=== PATIENT | male | born 1940 | race Caucasian/White ===

== ENCOUNTER → 2024-02-05 | Day surgery (SDC) | payer MEDICARE, BC ==
[2024-02-04 12:02] LABS: BASOPHILS % (AUTO) 0.2 % (0-1); EOSINOPHILS # (AUTO) 0.1 X10'3 (0-0.9); EOSINOPHILS % (AUTO) 1.4 % (0-6); HEMATOCRIT 37.4 % (42.0-52.0); HEMOGLOBIN 12.6 g/dl (14.0-17.9); LYMPHOCYTES # (AUTO) 1.2 X10'3 (1.1-4.8); LYMPHOCYTES % (AUTO) 19.4 % (21-51); MEAN CORPUSCULAR HGB CONC 33.7 g/dL (33.0-36.5); MEAN CORPUSCULAR VOLUME 100.7 FL (78-98); MEAN PLATELET VOLUME 8.4 FL (7.4-10.4); MONOCYTES # (AUTO) 0.6 X10'3 (0-0.9); MONOCYTES % (AUTO) 10.1 % (2-12); NEUTROPHILS # (AUTO) 4.3 X10'3 (1.8-7.7); NEUTROPHILS % (AUTO) 68.9 % (42-75); PLATELET COUNT 207 X10'3 (140-440); RED BLOOD COUNT 3.72 X10'6 (4.70-6.10); RED CELL DISTRIBUTION WIDTH 12.4 % (11.5-14.5); WHITE BLOOD COUNT 6.2 X10'3 (4.5-11.0)
[2024-02-04 12:14] LABS: APTT 25 SECONDS (22-32); PROTHROMBIN TIME 10.9 SECONDS (9.0-12.0)
[2024-02-04 12:17] LABS: ANION GAP 7 (8-16); BLOOD UREA NITROGEN 21 MG/DL (7-18); BUN/CREATININE RATIO 19.1 (10.0-20.0); CALCIUM 9.2 MG/DL (8.5-10.1); CHLORIDE 102 MMOL/L (99-107); CHOL/HDL RATIO 2.8 (0.00-4.99); CHOLESTEROL 157 MG/DL (0-200); GLUCOSE 100 MG/DL (70-104); HDL CHOLESTEROL 57 MG/DL (35-60); LDL CHOLESTEROL 83 MG/DL (50-100); POTASSIUM 4.2 MMOL/L (3.5-5.1); SODIUM 137 MMOL/L (135-145); TOTAL CARBON DIOXIDE 28.1 MMOL/L (24-32); TRIGLYCERIDES 99 MG/DL (20-135); eGFR 64 ML/MIN
[2024-02-05] VITALS (9 sets, daily range): BP systolic 103–123; BP diastolic 43–49; PULSE 48–64; RESP 13–16; TEMP 98.4; O2SAT 96–99
[~2024-02-05] VITALS: Ht 167.6 cm; Wt 81.7 kg
[~2024-02-05] MED LIST: ASPI81TA52 PO; ATOR20TA66 PO; HYDROcodone/acetaminophen 10/325mg tab PO PRN; HYDROcodone/acetaminophen 5mg/325mg tablet PO PRN; LIDOcaine 1% (10mg/ml) 2ml vial ONE; LISI20TA28 PO; MULT-1085 PO; fentaNYL/PF 50MCG/1 ML 2ML syringe ONE; heparin 1,000unit/ml 10ml vial 10 ML ONE; iohexol 350MG/ML 100ml bottle IV ONE; midazolam 1 mg/ML 2ml injection ONE; nitroGLYCERIN 500mcg/5mL D5W 0 ML IV ONE; nitroGLYCERIN 500mcg/5mL D5W 5 ML IV ONE; verapamil 2.5 mg/ml inj IV ONE
[2024-02-05] MEDS: LORazepam 0.5 MG tablet PO PRN (12:02)
[2024-02-05] MEDS: normal saline 1,000 ML IV SCH (12:02)
[2024-02-05] MEDS: diphenhydrAMINE 25mg capsule PO PRN (12:02)
[2024-02-05 13:40] LABS: ISTAT HGB ART 10.5 g/dl (14.0-17.9); ISTAT HGB MIX 10.5 g/dl (14.0-17.9); ISTAT Hct ART 31 %PCV (42-52); ISTAT Hct MIX 31 %PCV (42-52); ISTAT O2 SATURATION ARTERIAL 95 % (95-98); ISTAT O2 SATURATION MIX VENOUS 68 % (60-80); ISTAT SOURCE BLNK; ISTAT SOURCE VEN
== END | disposition home or self-care (01) ==
LOC: SSTAY O 09:04
PROVIDERS: ATTEND Student in an Organized Health Care Education/Training Program
DX: I35.0 Nonrheumatic aortic (valve) stenosis (principal); I25.10 Atherosclerotic heart disease of native coronary artery without angina pectoris; I49.3 Ventricular premature depolarization; I10 Essential (primary) hypertension; E11.9 Type 2 diabetes mellitus without complications; E78.00 Pure hypercholesterolemia, unspecified; E66.9 Obesity, unspecified; Z79.82 Long term (current) use of aspirin; Z79.899 Other long term (current) drug therapy; Z68.29 Body mass index [BMI] 29.0-29.9, adult
CPT/HCPCS: 36415; 80048; 80061; 82803; 85014; 85025; 85610; 85730; 93005; 93456; 99152; A6258; A6402; C1751; C1769; C1894; J1644; J2001; J2250; J3010; J3490; J7030; Q0163; Q9967; Z7610; A6449

== ENCOUNTER 2024-02-22 10:27 | Outpatient (CLI) | payer MEDICARE, BC ==
[~2024-02-22 10:27] MED LIST changes: -HYDROcodone/acetaminophen 10/325mg tab PO PRN; -HYDROcodone/acetaminophen 5mg/325mg tablet PO PRN; -LIDOcaine 1% (10mg/ml) 2ml vial ONE; -fentaNYL/PF 50MCG/1 ML 2ML syringe ONE; -heparin 1,000unit/ml 10ml vial 10 ML ONE; -iohexol 350MG/ML 100ml bottle IV ONE; -midazolam 1 mg/ML 2ml injection ONE; -nitroGLYCERIN 500mcg/5mL D5W 0 ML IV ONE; -nitroGLYCERIN 500mcg/5mL D5W 5 ML IV ONE; -verapamil 2.5 mg/ml inj IV ONE
[2024-02-22] MEDS ORDERED: IODIXANOL 320 MG/ML INFUS..BTL 100ML IV ONE (10:59)
[2024-02-22 11:09] LABS: HEMOGLOBIN 12.6 g/dl (14.0-17.9); LYMPHOCYTES # (AUTO) 1.6 X10'3 (1.1-4.8); NEUTROPHILS # (AUTO) 1.6 X10'3 (1.8-7.7); WHITE BLOOD COUNT 3.9 X10'3 (4.5-11.0)
[2024-02-22 11:11] LABS: BASOPHILS % (AUTO) 0.4 % (0-1); EOSINOPHILS # (AUTO) 0.2 X10'3 (0-0.9); EOSINOPHILS % (AUTO) 3.9 % (0-6); HEMATOCRIT 37.3 % (42.0-52.0); LYMPHOCYTES % (AUTO) 39.5 % (21-51); MEAN CORPUSCULAR HEMOGLOBIN 34.2 PG (27.0-31.0); MEAN CORPUSCULAR HGB CONC 33.8 g/dL (33.0-36.5); MEAN CORPUSCULAR VOLUME 101.1 FL (78-98); MEAN PLATELET VOLUME 8.6 FL (7.4-10.4); MONOCYTES # (AUTO) 0.6 X10'3 (0-0.9); MONOCYTES % (AUTO) 16.3 % (2-12); NEUTROPHILS % (AUTO) 39.9 % (42-75); PLATELET COUNT 221 X10'3 (140-440); RED BLOOD COUNT 3.69 X10'6 (4.70-6.10); RED CELL DISTRIBUTION WIDTH 12.9 % (11.5-14.5)
[2024-02-22 11:14] LABS: APTT 26 SECONDS (22-32); PROTHROMBIN TIME 10.9 SECONDS (9.0-12.0)
[2024-02-22 11:23] LABS: ALANINE AMINOTRANSFERASE 26 U/L (12-78); ALBUMIN/GLOBULIN RATIO 1.1 (1.1-1.5); ALKALINE PHOSPHATASE 39 IU/L (46-116); ANION GAP 7 (8-16); ASPARTATE AMINO TRANSFERASE 24 U/L (10-37); BILIRUBIN,TOTAL 0.4 MG/DL (0.1-1.0); BLOOD UREA NITROGEN 23 MG/DL (7-18); BUN/CREATININE RATIO 22.8 (10.0-20.0); CALCIUM 9.3 MG/DL (8.5-10.1); CHLORIDE 105 MMOL/L (99-107); CREATININE 1.01 MG/DL (0.60-1.10); GLUCOSE 96 MG/DL (70-104); POTASSIUM 4.6 MMOL/L (3.5-5.1); PRO BRAIN NATRIURETIC PEPTIDE 138 PG/ML (0-450); SODIUM 140 MMOL/L (135-145); TOTAL CARBON DIOXIDE 27.9 MMOL/L (24-32); TOTAL PROTEIN 7.6 G/DL (6.4-8.2); eGFR 71 ML/MIN
== END 2024-02-22 23:59 | disposition home or self-care (01) ==
LOC: RAD 10:27
PROVIDERS: ATTEND Internal Medicine Cardiovascular Disease
DX: R91.1 Solitary pulmonary nodule (principal); I35.0 Nonrheumatic aortic (valve) stenosis; R06.02 Shortness of breath; I65.29 Occlusion and stenosis of unspecified carotid artery; K57.30 Diverticulosis of large intestine without perforation or abscess without bleeding; M47.814 Spondylosis without myelopathy or radiculopathy, thoracic region
CPT/HCPCS: 71046; 71275; 74174; 75572; 80053; 83880; 85025; 85610; 85730; Q9967